=== PATIENT | female | born 1930 | race Caucasian/White ===

== ENCOUNTER → 2017-10-09 | Outpatient (CLI) | payer MEDICARE, BC ==
[2016-07-08 12:56] VITALS: BMI 20.3
[~2017-10-09] MED LIST: ASCO500C8 PO; ASPI-757 PO; CALC-545 PO; CIT500PT PO; CLOP75TA PO; CYAN50TA3 PO; DENOSUMAB 60 MG/1 ML SYR SUBQ ONE; DOC100 PO; ESOM40CA42 PO; FISH OIL1 CAP PO; FLU220R INH; FUR20 PO; GUAI-652 PO; GUAI600T57 PO; LEV25 PO; LEVO50TA86; LID5T TP; LOR5/325 PO; LORA5TAB16 PO; METO25TA93 PO; OMEP-153 PO; PER PO; POT10 PO; PYRI50TA88 PO; RANI-318 PO; RISE150T PO; RISE35TA PO; SODI45SP29 NS; TRAM-420 PO; VIT1CAPS9 PO; VITE400 PO; [UNRECOGNIZED DRUG - CODE] OP
[2017-10-09 14:50] VITALS: BP 150/76
== END ==
LOC: SPU 07:42
PROVIDERS: ATTEND Family Medicine
DX: M81.0 Age-related osteoporosis without current pathological fracture (principal)
CPT/HCPCS: 96372; J0897

== ENCOUNTER 2017-12-12 00:14 | Day surgery (SDC) | payer MEDICARE, BC ==
[2016-07-08 12:56] VITALS: Ht 149.9 cm; Wt 42.2 kg
[~2017-12-12] VITALS: Ht 149.9 cm; Wt 42.2 kg
[~2017-12-12 00:14] MED LIST changes: +ASPI-1471 PO; +DEN60I SUBQ; -DENOSUMAB 60 MG/1 ML SYR SUBQ ONE; +LACT1CAP6 PO; -LEVO50TA86; +LEVO50TA86 PO; +VITA150T2 PO
[2017-12-12] MEDS ORDERED: PROPOFOL EMUL(*) 10MG/ML 20 ML 40 ML ONE (07:09)
[2017-12-12] MEDS ORDERED: NORMOSOL R SOLN(*) 1000 ML BAG 1,000 ML IV PRN (10:50)
[2017-12-12 11:15] VITALS: BP 184/96
[2017-12-12] MEDS ORDERED: LIDOCAINE/SOD BICARB 8.4% SYR ID ONE (11:50)
[2017-12-12 12:39] VITALS: BP 101/42
--- NOTE | 2017-12-12 12:46 | Short(Outpt) Discharge Summary ---
Discharge Summary Reason for Hosp/Final Diag: (1) BRBPR (bright red blood per rectum) Status: Resolved Hospital Course & Plan: Colonoscopy completed without problems. Departure Discharge to: Home, Self Care Discharge Instructions Home Meds Reported Medications Aspirin (ASPIR 81) 81 Mg Tablet.dr, 81 MG PO QDAY, TAB 11/27/17 Denosumab (PROLIA) 60 Mg/1 Ml Injs, 60 MG SUBQ [id number] 11/27/17 Lactobacillus Combination No.4 (PROBIOTIC) 1 Each Capsule, 1 EACH PO QDAY, CAPSULE 11/21/17 Vitamin B Complex & Vit C No.4 (SUPER B COMPLEX) 150 Mg Tablet, 150 MG PO QDAY 11/21/17 Vit C/E/Zn/Coppr/Lutein/Zeaxan (Preservision Areds 2 Softgel) 1 Each Capsule, 1 CAP PO BID 07/10/16 Levothyroxine Sodium (LEVOTHYROXINE SODIUM) 50 Mcg Tablet, 1 TAB PO QDAY, #90 07/08/16 Guaifenesin (MUCINEX) 600 Mg Tablet.er, 600 MG PO QDAY 07/05/16 Docusate Sodium (Colace 100 Mg) 100 Mg Cap, 200 MG PO QDAY 09/05/12 Bradford-3 Fatty Acids (Fish Oil) 1 Cap Capsule, 1 CAP PO DAILY 01/17/11 Ascorbic Acid (Vitamin C) 500 Mg Capsule.sa, 500 MG PO QDAY DAILY 01/17/11 Calcium Citrate/Vitamin D3 (Citracal + D Caplet) 1 Tab Tablet, 2 TAB PO TID 01/17/11 Diet: Regular Activity: As Tolerated Special Instructions: Your colonoscopy was completed without any problems and your prep was excellent (Good Job!!). I didn't find any evidence of cancer, polyps, or inflammation. You do not need to have any future colonoscopies unless you have GI issues that need to be evaluated. The most likely source of the blood that you saw was likely from your anus which can be caused from hemorrhoids which may come and go or irritation of the skin in your anal canal which can also bleed. RENAY HOLT MD Dec 12, 2017 12:46
[2017-12-12 13:07] VITALS: BP 113/56
[2017-12-12 13:28] VITALS: BP 155/78
[2017-12-12 13:29] VITALS: BP 154/78
== END 2017-12-12 13:50 | disposition home health service (06) ==
LOC: OR 00:14
PROVIDERS: ATTEND Surgery
DX: K92.1 Melena (principal)
CPT/HCPCS: 00811; 45378; J2704

== ENCOUNTER → 2018-10-01 | Outpatient (CLI) | payer MEDICARE, BC ==
[2016-07-08 12:56] VITALS: BMI 20.3
--- NOTE | 2018-10-01 09:41 | RADIOLOGY IMAGING REPORT ---
FACILITY: [facility] - [place] PATIENT NAME: Jackie Martinez : 1930 MR: [id number] V: [id number] EXAM DATE: ORDERING PHYSICIAN: RENAY HERNANDEZ TECHNOLOGIST: Location: [facility] [place] Patient: Jackie Martinez : 1930 Visit/Account:[id number] Date of Sevice: 10/01/2018 DEXA Scan Clinical history: Osteopenia. Comparison: DEXA scan from 09/29/2016. LUMBAR SPINE: The bone mineral density (BMD) measured from L2-L4 correlates with a Z-score 1.2 and a T-score of -1 .4 which is osteopenia as defined by the World Health Organization. The corresponding risk of fractu re in the lumbar spine is 2-3 times compared with a young adult reference population. This value has increased by 3.9 % since the prior study. More than 5% change is considered significant. HIP: Bone mineral density (BMD) measured in the Left femoral neck region correlates with a Z-score 0.8 and a T-score of -2.1 which is osteopenia as defined by the World Health Organization. The correspond ing risk of fracture in the hip is 4-6 times compared with a young adult reference population. The to bre hip value has decreased by 3.2 % since the prior study. More than 5% change is considered signif icant. Bone mineral density (BMD) measured in the Femoral Neck region measures 0.753 g/cm2. IMPRESSION: 1. Lumbar spine: Osteopenia. There has been No significant change in the bone mineral density since the previous exam. 2. Left Hip: Osteopenia. There has been No significant change in the bone mineral density of the to bre hip since the previous exam. 3. Femoral Neck: Bone Mineral Density is 0.753 g/cm2 The next DEXA scan of this patient should include the following sites: L2-L4 and the left hip. FRAX? WHO Fracture Risk Assessment Tool link: <http://www.shef.ac.uk/FRAX/tool.jsp?locationValue=9> PLEASE NOTE: 1) The World Health Organization defines low BMD as follows: T-score Normal > -1 Osteopenia < -1 and > -2.5 Osteoporosis < -2.5 without fractures Established osteoporosis < -2.5 with fractures 2) In general, you may wish to consider: Diagnosis Treatment Follow-up DEXA Normal BMD Prevention 2-3 years Osteopenia Prevention/therapy 1-2 years Osteoporosis Therapy Yearly 3) Fracture risk estimated from the T-score is more accurate for vertebral fractures (often spontane ous) than for hip fractures. Report Dictated By: Eric Cross MD at 10/01/2018 9:35 AM Report E-Signed By: Eric Cross MD at 10/01/2018 9:37 AM WSN:[email or web address]
== END ==
LOC: RAD 07:05
PROVIDERS: ATTEND Family Medicine
DX: M85.89 Other specified disorders of bone density and structure, multiple sites (principal)
CPT/HCPCS: 77080